=== PATIENT | male | born 2000 | race Two or more races ===

== ENCOUNTER → 2022-10-22 | Emergency (ER) | payer OTHER ==
[~2022-10-22] VITALS: Ht 190.5 cm; Wt 122.5 kg
[~2022-10-22] MED LIST: CEPHALEXIN500 MG PO
== END | disposition home or self-care (01) ==
LOC: EMR PED 23:13
DX: S61.412A Laceration without foreign body of left hand, initial encounter (principal); W26.0XXA Contact with knife, initial encounter; Y93.89 Activity, other specified; Y92.89 Other specified places as the place of occurrence of the external cause